=== PATIENT | female | born 1970 | race Caucasian/White ===

== ENCOUNTER 2017-12-19 10:39 | Inpatient (IN) | payer MEDICAID ==
[2017-12-19] MEDS: SOD CHLORIDE 0.9% 1,000 ML IV ×2 (10:00→18:47)
[2017-12-19 12:15] LABS: ADD MAN DIFF? NO
[2017-12-19 12:18] LABS: WHITE BLOOD COUNT 12.2 10^3/ul (4.8-10.8)
[2017-12-19 12:18] LABS: BASOPHILS % 0.3 % (0.0-2.0); HEMATOCRIT 25.9 % (37.0-47.0); HEMOGLOBIN 8.3 g/dl (12.0-16.0); LYMPHOCYTES # 1.7 10^3/ul (0.8-2.9); LYMPHOCYTES % 14.2 % (15.0-51.0); MEAN CORPUSCULAR HEMOGLOBIN 28.6 pg (29.0-33.0); MEAN CORPUSCULAR VOLUME 89.3 fl (82.0-101.0); MEAN PLATELET VOLUME 9.6 fl (7.4-10.4); MONOCYTES % 8.1 % (0.0-11.0); NEUTROPHIL # 9.3 10^3/ul (1.6-7.5); NEUTROPHILS % 76.9 % (39.0-77.0); PLATELET COUNT 458 10^3/UL (140-415); RED CELL DISTRIBUTION WIDTH 15.6 % (11.5-14.5)
[2017-12-19 12:28] LABS: ANION GAP 18 (8-16); CARBON DIOXIDE 25 mmol/L (21-31); CHLORIDE 102 mmol/L (97-110); GLUCOSE 169 mg/dl (70-220)
[2017-12-19 12:33] LABS: CALCIUM 9.3 mg/dl (8.4-10.2); CREATININE 0.52 mg/dl (0.44-1.00); POTASSIUM 3.7 mmol/L (3.5-5.1); SODIUM 141 mmol/L (135-144)
[2017-12-19 12:35] LABS: BLOOD UREA NITROGEN 5 mg/dl (7-20); INR 1.13; PROTIME 14.7 Sec (11.9-14.9); PT RATIO 1.1
[2017-12-19 12:43] LABS: HOLD TRANSMISSIONS 1
[2017-12-19 13:00] LABS: PARTIAL THROMBOPLASTIN TIME 36.6 Sec (25.0-35.0)
[2017-12-19] MEDS ORDERED: FENTAnyl 50 MCG/ML VIAL ×2 (13:23→14:33)
[2017-12-19] MEDS ORDERED: ROCURONIUM 50 MG INJ (13:39)
[2017-12-19] MEDS ORDERED: PROPOFOL 20 ML (13:39)
[2017-12-19] MEDS ORDERED: SUCCINYLCHOLINE CHLORIDE 100 MG/5 ML SYG IV (13:39)
[2017-12-19] MEDS ORDERED: CEFAZOLIN 1 GM INJ (13:39)
[2017-12-19] MEDS ORDERED: LIDOCAINE 100 MG SYRINGE (13:39)
[2017-12-19] MEDS ORDERED: SUGAMMADEX SODIUM 200 MG/2 ML VIAL IV (13:39)
[2017-12-19] MEDS ORDERED: DIPHENHYDRAMINE 50 MG INJ IV (14:00)
[2017-12-19] MEDS ORDERED: HYDROmorphONE (0.2 MG/ML) 10ML SYG IV (14:00)
[2017-12-19] MEDS ORDERED: FENTAnyl 50 MCG/ML VIAL IV ×3 (14:00)
[2017-12-19] MEDS ORDERED: METOCLOPRAMIDE 10 MG INJ IV (14:00)
[2017-12-19] MEDS ORDERED: MEPERIDINE 25 MG INJ IV (14:00)
[2017-12-19] MEDS ORDERED: D5W-0.45 NACL + KCL 20 MEQ 1,000 ML IV (14:59)
[2017-12-19] MEDS ORDERED: morphine 2 MG INJ IV (15:00)
[2017-12-19] MEDS ORDERED: ACETAMINOPHEN 1000MG/100ML IV 100 ML IVPB (15:00)
[2017-12-19] MEDS: ONDANSETRON 4 MG INJ IV ×2 (15:11→18:23)
[2017-12-19] MEDS: HYDROmorphONE (0.2 MG/ML) 10ML SYG IV ×2 (15:12→17:41)
[2017-12-19 16:20] LABS: IMMEDIATE SPIN CROSSMATCH 1 4
[2017-12-19] MEDS: CEFAZOLIN 2 GM/50 ML (PMX) 50 ML IVPB (18:04)
[2017-12-19 18:59] LABS: HEMATOCRIT 29.3 % (37.0-47.0); HEMOGLOBIN 9.5 g/dl (12.0-16.0)
[2017-12-20] MEDS: SOD CHLORIDE 0.9% 1,000 ML IV ×2 (06:12→18:25)
[2017-12-20 06:18] LABS: ADD MAN DIFF? NO
[2017-12-20 06:27] LABS: WHITE BLOOD COUNT 9.8 10^3/ul (4.8-10.8)
[2017-12-20 06:27] LABS: BASOPHILS % 0.3 % (0.0-2.0); HEMATOCRIT 24.4 % (37.0-47.0); HEMOGLOBIN 7.9 g/dl (12.0-16.0); LYMPHOCYTES # 1.5 10^3/ul (0.8-2.9); LYMPHOCYTES % 14.9 % (15.0-51.0); MEAN CORPUSCULAR HEMOGLOBIN 28.8 pg (29.0-33.0); MEAN CORPUSCULAR HGB CONC 32.4 g/dl (32.0-37.0); MEAN CORPUSCULAR VOLUME 89.1 fl (82.0-101.0); MEAN PLATELET VOLUME 9.5 fl (7.4-10.4); MONOCYTE # 1.3 10^3/ul (0.3-0.9); MONOCYTES % 12.9 % (0.0-11.0); NEUTROPHILS % 71.1 % (39.0-77.0); NUCLEATED RED BLOOD CELLS% 0.2 /100WBC (0.0-0.0); PLATELET COUNT 321 10^3/UL (140-415); RED BLOOD COUNT 2.74 10^6/ul (4.20-5.40); RED CELL DISTRIBUTION WIDTH 16.4 % (11.5-14.5)
[2017-12-20 06:51] LABS: ANION GAP 13 (8-16); BLOOD UREA NITROGEN 7 mg/dl (7-20); CALCIUM 8.2 mg/dl (8.4-10.2); CARBON DIOXIDE 26 mmol/L (21-31); CHLORIDE 104 mmol/L (97-110); CREATININE 0.53 mg/dl (0.44-1.00); GLUCOSE 173 mg/dl (70-220); POTASSIUM 3.8 mmol/L (3.5-5.1); SODIUM 139 mmol/L (135-144)
[2017-12-20] MEDS: HYDROCODONE/APAP (5/325) TAB PO (16:10)
[2017-12-20] MEDS: ONDANSETRON 4 MG INJ IV (19:50)
[2017-12-20] MEDS: SOD CHLORIDE 0.9% 250 ML IV* (22:00)
[2017-12-20] MEDS: FERROUS SULFATE (EC) 325 MG TAB PO (22:13)
[2017-12-21 06:08] LABS: ADD MAN DIFF? NO
[2017-12-21 06:26] LABS: BASOPHILS % 0.5 % (0.0-2.0); HEMATOCRIT 26.3 % (37.0-47.0); HEMOGLOBIN 8.6 g/dl (12.0-16.0); LYMPHOCYTES # 1.3 10^3/ul (0.8-2.9); LYMPHOCYTES % 21.1 % (15.0-51.0); MEAN CORPUSCULAR HEMOGLOBIN 29.1 pg (29.0-33.0); MEAN CORPUSCULAR HGB CONC 32.7 g/dl (32.0-37.0); MEAN CORPUSCULAR VOLUME 88.9 fl (82.0-101.0); MEAN PLATELET VOLUME 9.5 fl (7.4-10.4); MONOCYTE # 0.7 10^3/ul (0.3-0.9); MONOCYTES % 10.7 % (0.0-11.0); NEUTROPHIL # 4.1 10^3/ul (1.6-7.5); NEUTROPHILS % 66.7 % (39.0-77.0); NUCLEATED RED BLOOD CELLS% 0.3 /100WBC (0.0-0.0); PLATELET COUNT 305 10^3/UL (140-415); RED BLOOD COUNT 2.96 10^6/ul (4.20-5.40); RED CELL DISTRIBUTION WIDTH 15.4 % (11.5-14.5)
[2017-12-21 06:26] LABS: WHITE BLOOD COUNT 6.1 10^3/ul (4.8-10.8)
[2017-12-21] MEDS: FERROUS SULFATE (EC) 325 MG TAB PO (09:23)
[2017-12-21] MEDS: BISACODYL (EC) 5 MG TAB PO (18:02)
[2017-12-21] MEDS: HYDROCODONE/APAP (5/325) TAB PO (18:04)
== END 2017-12-21 20:05 | disposition home or self-care (01) | DRG 580 ==
LOC: SDS 10:39 → REC 15:48 → MS2 18:18
PROC: 07B50ZX Excision of Right Axillary Lymphatic, Open Approach, Diagnostic (ICD-10-PCS; principal; 2017-12-19 12:00)
PROC: 0HTT0ZZ Resection of Right Breast, Open Approach (ICD-10-PCS; 2017-12-19 12:00)
DX: C50.919 Malignant neoplasm of unspecified site of unspecified female breast (principal); D62 Acute posthemorrhagic anemia
CPT/HCPCS: 36430; 80048; 85014; 85018; 85025; 85610; 85730; 86850; 86900; 86901; 86920; 88307

== ENCOUNTER 2018-02-14 13:08 | Inpatient (IN) | payer MEDICAID ==
[2018-02-14] MEDS: SOD CHLORIDE 0.9% 500 ML IV (14:18)
[2018-02-14 16:01] LABS: ADD MAN DIFF? NO
[2018-02-14 16:02] LABS: BASOPHILS % 0.1 % (0.0-2.0); EOSINOPHILS % 0.2 % (0.0-7.0); HEMATOCRIT 33.4 % (37.0-47.0); HEMOGLOBIN 10.8 g/dl (12.0-16.0); LYMPHOCYTES % 7.4 % (15.0-51.0); MEAN CORPUSCULAR HEMOGLOBIN 27.8 pg (29.0-33.0); MEAN CORPUSCULAR HGB CONC 32.3 g/dl (32.0-37.0); MEAN CORPUSCULAR VOLUME 86.1 fl (82.0-101.0); MONOCYTE # 1.1 10^3/ul (0.3-0.9); MONOCYTES % 8.1 % (0.0-11.0); NEUTROPHIL # 11.7 10^3/ul (1.6-7.5); NEUTROPHILS % 83.3 % (39.0-77.0); PLATELET COUNT 466 10^3/UL (140-415); RED BLOOD COUNT 3.88 10^6/ul (4.20-5.40); RED CELL DISTRIBUTION WIDTH 13.8 % (11.5-14.5)
[2018-02-14 16:20] LABS: ALANINE AMINOTRANSFERASE 20 IU/L (13-69); ALBUMIN 3.5 g/dl (3.3-4.9); ALBUMIN/GLOBULIN RATIO 0.87; ALKALINE PHOSPHATASE 81 IU/L (42-121); ANION GAP 15 (8-16); ASPARTATE AMINO TRANSFERASE 18 IU/L (15-46); BILIRUBIN,INDIRECT 0.3 mg/dl (0-1.1); BILIRUBIN,TOTAL 0.3 mg/dl (0.2-1.3); BLOOD UREA NITROGEN 7 mg/dl (7-20); CALCIUM 8.9 mg/dl (8.4-10.2); CARBON DIOXIDE 30 mmol/L (21-31); CHLORIDE 96 mmol/L (97-110); CREATININE 0.55 mg/dl (0.44-1.00); GLUCOSE 201 mg/dl (70-220); POTASSIUM 4.2 mmol/L (3.5-5.1); SODIUM 137 mmol/L (135-144); TOTAL PROTEIN 7.5 g/dl (6.1-8.1)
[2018-02-14] MEDS: CEFEPIME 1GM/50 ML (PMX) 50 ML IVPB (16:28)
[2018-02-14 16:29] LABS: B-TYPE NATRIURETIC PEPTIDE 173 PG/ML (0-125)
[2018-02-14] MEDS: ONDANSETRON 4 MG INJ IV ×2 (16:31→17:24)
[2018-02-14] MEDS: HYDROmorphONE 0.5 MG/0.5 ML SYG IV ×2 (16:31→17:29)
[2018-02-14] MEDS: VANCOMYCIN 1 GM (PMX) 250 ML IVPB (16:55)
[2018-02-14 17:03] LABS: INR 1.32; PROTIME 16.6 Sec (11.9-14.9); PT RATIO 1.3
[2018-02-14 17:04] LABS: PARTIAL THROMBOPLASTIN TIME 40.9 Sec (25.0-35.0)
[2018-02-14] MEDS ORDERED: ACETAMINOPHEN 325 MG TAB PO (20:00)
[2018-02-14] MEDS: IOHEXOL 100 ML (20:27)
[2018-02-14] MEDS: SOD CHLORIDE 0.9% 100 ML (20:27)
[2018-02-14] MEDS: IOHEXOL 350MG/ML 50 ML BTL (20:28)
[2018-02-14] MEDS: SOD CHLORIDE 0.9% 1,000 ML IV (20:47)
[2018-02-15] MEDS: HYDROmorphONE 0.5 MG/0.5 ML SYG IV (00:29)
[2018-02-15] MEDS: ONDANSETRON 4 MG INJ IV (00:29)
[2018-02-15] MEDS ORDERED: DOCUSATE SODIUM 100 MG CAP PO (13:30)
[2018-02-15] MEDS ORDERED: ONDANSETRON 4 MG INJ IV (13:30)
[2018-02-15] MEDS ORDERED: ACETAMINOPHEN 325 MG TAB PO (13:30)
[2018-02-15] MEDS ORDERED: NACL 0.9% 3 ML SYG IV (13:30)
[2018-02-15] MEDS ORDERED: LEVALBUTEROL (NEB) 0.63 MG/3 ML AMP HHN (14:00)
[2018-02-15] MEDS: HYDROCODONE/APAP (5/325) TAB PO (14:30)
[2018-02-15] MEDS ORDERED: VANCOMYCIN IV PER PHARMACY XX (16:00)
[2018-02-15] MEDS: CEFEPIME 1GM/50 ML (PMX) 50 ML IVPB (16:10)
[2018-02-15] MEDS: VANCOMYCIN 1.75 GM in SOD CHLORIDE 0.9% 500 ML IVPB (17:56)
[2018-02-15] MEDS: morphine 2 MG INJ IV (20:45)
[2018-02-15] MEDS: FAMOTIDINE 20 MG TAB PO (20:45)
[2018-02-16] MEDS: CEFEPIME 1GM/50 ML (PMX) 50 ML IVPB ×3 (01:12→21:09)
[2018-02-16] MEDS: HYDROCODONE/APAP (5/325) TAB PO ×4 (01:26→21:12)
[2018-02-16] MEDS: VANCOMYCIN 1.25 GM in SOD CHLORIDE 0.9% 250 ML IVPB ×2 (05:38→17:00)
[2018-02-16] MEDS ORDERED: VANCOMYCIN 1 GM 250 ML IVPB (08:00)
[2018-02-16 08:03] LABS: ADD MAN DIFF? NO
[2018-02-16 08:07] LABS: WHITE BLOOD COUNT 10.9 10^3/ul (4.8-10.8)
[2018-02-16 08:07] LABS: BASOPHILS % 0.2 % (0.0-2.0); EOSINOPHILS # 0.2 10^3/ul (0.0-0.5); EOSINOPHILS % 1.7 % (0.0-7.0); HEMATOCRIT 29.8 % (37.0-47.0); HEMOGLOBIN 9.5 g/dl (12.0-16.0); LYMPHOCYTES # 0.9 10^3/ul (0.8-2.9); LYMPHOCYTES % 8.2 % (15.0-51.0); MEAN CORPUSCULAR HGB CONC 31.9 g/dl (32.0-37.0); MEAN CORPUSCULAR VOLUME 87.9 fl (82.0-101.0); MEAN PLATELET VOLUME 9.5 fl (7.4-10.4); MONOCYTE # 1.1 10^3/ul (0.3-0.9); NEUTROPHIL # 8.7 10^3/ul (1.6-7.5); NEUTROPHILS % 79.4 % (39.0-77.0); PLATELET COUNT 411 10^3/UL (140-415); RED BLOOD COUNT 3.39 10^6/ul (4.20-5.40); RED CELL DISTRIBUTION WIDTH 13.9 % (11.5-14.5)
[2018-02-16] MEDS: FAMOTIDINE 20 MG TAB PO ×2 (08:18→21:09)
[2018-02-16 08:25] LABS: ANION GAP 13 (8-16); BLOOD UREA NITROGEN 4 mg/dl (7-20); CALCIUM 8.5 mg/dl (8.4-10.2); CARBON DIOXIDE 31 mmol/L (21-31); CHLORIDE 100 mmol/L (97-110); CREATININE 0.48 mg/dl (0.44-1.00); GLUCOSE 186 mg/dl (70-220); POTASSIUM 3.7 mmol/L (3.5-5.1); SODIUM 140 mmol/L (135-144)
[2018-02-16] MEDS: LIDOCAINE 1% (MDV) 10 ML INJ (10:21)
[2018-02-16 13:46] LABS: FLD MN% 43.5 %; FLD PMN% 56.5 %; FLD RBC 2000 /uL; FLD WBC 1091 /cmm
[2018-02-16 14:31] LABS: FLD TYPE THORACENTHESIS
[2018-02-16 14:31] LABS: FLD CLARITY SLIGHTLY HAZY; FLD COLOR YELLOW; PATH REVIEW? YES
[2018-02-16] MEDS ORDERED: ZOLPIDEM 5 MG TAB PO (23:30)
[2018-02-17] MEDS: HYDROCODONE/APAP (5/325) TAB PO ×4 (01:34→20:02)
[2018-02-17 03:57] LABS: ADD MAN DIFF? NO
[2018-02-17 04:18] LABS: BASOPHILS % 0.1 % (0.0-2.0); EOSINOPHILS # 0.4 10^3/ul (0.0-0.5); EOSINOPHILS % 3.2 % (0.0-7.0); HEMATOCRIT 28.9 % (37.0-47.0); HEMOGLOBIN 9.2 g/dl (12.0-16.0); LYMPHOCYTES # 0.9 10^3/ul (0.8-2.9); LYMPHOCYTES % 7.7 % (15.0-51.0); MEAN CORPUSCULAR HGB CONC 31.8 g/dl (32.0-37.0); MEAN CORPUSCULAR VOLUME 87.8 fl (82.0-101.0); MEAN PLATELET VOLUME 9.4 fl (7.4-10.4); NEUTROPHIL # 9.7 10^3/ul (1.6-7.5); NEUTROPHILS % 80.5 % (39.0-77.0); PLATELET COUNT 396 10^3/UL (140-415); RED BLOOD COUNT 3.29 10^6/ul (4.20-5.40)
[2018-02-17 04:23] LABS: ANION GAP 14 (8-16); BLOOD UREA NITROGEN 7 mg/dl (7-20); CALCIUM 8.4 mg/dl (8.4-10.2); CARBON DIOXIDE 30 mmol/L (21-31); CHLORIDE 99 mmol/L (97-110); CREATININE 0.49 mg/dl (0.44-1.00); GLUCOSE 200 mg/dl (70-220); POTASSIUM 3.7 mmol/L (3.5-5.1); SODIUM 139 mmol/L (135-144)
[2018-02-17 04:27] LABS: VANCOMYCIN,TROUGH 8.2 ug/ml (10.0-20.0)
[2018-02-17] MEDS: VANCOMYCIN 1.5 GM in SOD CHLORIDE 0.9% 250 ML IVPB ×2 (06:22→16:04)
[2018-02-17] MEDS: FAMOTIDINE 20 MG TAB PO ×2 (08:34→20:02)
[2018-02-17] MEDS: CEFEPIME 1GM/50 ML (PMX) 50 ML IVPB ×2 (08:34→20:29)
[2018-02-18] MEDS: VANCOMYCIN 1.5 GM in SOD CHLORIDE 0.9% 250 ML IVPB ×2 (05:25→17:07)
[2018-02-18 07:21] LABS: ADD MAN DIFF? NO
[2018-02-18 07:22] LABS: BASOPHILS % 0.1 % (0.0-2.0); EOSINOPHILS # 0.3 10^3/ul (0.0-0.5); EOSINOPHILS % 2.4 % (0.0-7.0); HEMATOCRIT 28.1 % (37.0-47.0); HEMOGLOBIN 8.9 g/dl (12.0-16.0); LYMPHOCYTES # 0.9 10^3/ul (0.8-2.9); LYMPHOCYTES % 7.8 % (15.0-51.0); MEAN CORPUSCULAR HEMOGLOBIN 27.5 pg (29.0-33.0); MEAN CORPUSCULAR HGB CONC 31.7 g/dl (32.0-37.0); MEAN CORPUSCULAR VOLUME 86.7 fl (82.0-101.0); MEAN PLATELET VOLUME 9.1 fl (7.4-10.4); MONOCYTE # 1.2 10^3/ul (0.3-0.9); MONOCYTES % 9.9 % (0.0-11.0); NEUTROPHIL # 9.2 10^3/ul (1.6-7.5); NEUTROPHILS % 79.5 % (39.0-77.0); PLATELET COUNT 376 10^3/UL (140-415); RED BLOOD COUNT 3.24 10^6/ul (4.20-5.40)
[2018-02-18 07:22] LABS: WHITE BLOOD COUNT 11.6 10^3/ul (4.8-10.8)
[2018-02-18] MEDS: HYDROCODONE/APAP (5/325) TAB PO ×3 (07:34→20:20)
[2018-02-18 07:44] LABS: ANION GAP 13 (8-16); BLOOD UREA NITROGEN 4 mg/dl (7-20); CALCIUM 8.4 mg/dl (8.4-10.2); CARBON DIOXIDE 31 mmol/L (21-31); CHLORIDE 96 mmol/L (97-110); CREATININE 0.46 mg/dl (0.44-1.00); GLUCOSE 163 mg/dl (70-220); POTASSIUM 3.6 mmol/L (3.5-5.1); SODIUM 136 mmol/L (135-144)
[2018-02-18] MEDS: CEFEPIME 1GM/50 ML (PMX) 50 ML IVPB ×2 (08:39→21:00)
[2018-02-18] MEDS: FAMOTIDINE 20 MG TAB PO ×2 (08:39→20:20)
[2018-02-19] MEDS: HYDROCODONE/APAP (5/325) TAB PO ×4 (04:25→23:44)
[2018-02-19] MEDS: VANCOMYCIN 1.5 GM in SOD CHLORIDE 0.9% 250 ML IVPB (04:26)
[2018-02-19 05:11] LABS: VANCOMYCIN,TROUGH 9.8 ug/ml (10.0-20.0)
[2018-02-19] MEDS: CEFEPIME 1GM/50 ML (PMX) 50 ML IVPB ×2 (08:22→20:59)
[2018-02-19] MEDS: FAMOTIDINE 20 MG TAB PO ×2 (08:22→20:59)
[2018-02-19] MEDS: VANCOMYCIN 1.25 GM in SOD CHLORIDE 0.9% 250 ML IVPB ×2 (14:15→21:09)
[2018-02-20] MEDS: VANCOMYCIN 1.25 GM in SOD CHLORIDE 0.9% 250 ML IVPB (06:05)
[2018-02-20 06:36] LABS: ADD MAN DIFF? NO
[2018-02-20 06:40] LABS: BASOPHILS % 0.2 % (0.0-2.0); EOSINOPHILS # 0.2 10^3/ul (0.0-0.5); EOSINOPHILS % 2.3 % (0.0-7.0); HEMATOCRIT 28.5 % (37.0-47.0); HEMOGLOBIN 9.2 g/dl (12.0-16.0); LYMPHOCYTES # 0.9 10^3/ul (0.8-2.9); LYMPHOCYTES % 8.7 % (15.0-51.0); MEAN CORPUSCULAR HEMOGLOBIN 28.3 pg (29.0-33.0); MEAN CORPUSCULAR HGB CONC 32.3 g/dl (32.0-37.0); MEAN CORPUSCULAR VOLUME 87.7 fl (82.0-101.0); MEAN PLATELET VOLUME 9.3 fl (7.4-10.4); MONOCYTE # 1.2 10^3/ul (0.3-0.9); MONOCYTES % 12.4 % (0.0-11.0); NEUTROPHIL # 7.5 10^3/ul (1.6-7.5); NEUTROPHILS % 75.9 % (39.0-77.0); PLATELET COUNT 374 10^3/UL (140-415); RED BLOOD COUNT 3.25 10^6/ul (4.20-5.40); RED CELL DISTRIBUTION WIDTH 14.1 % (11.5-14.5)
[2018-02-20 06:40] LABS: WHITE BLOOD COUNT 9.9 10^3/ul (4.8-10.8)
[2018-02-20 07:05] LABS: ANION GAP 12 (8-16); BLOOD UREA NITROGEN 4 mg/dl (7-20); CALCIUM 8.6 mg/dl (8.4-10.2); CARBON DIOXIDE 33 mmol/L (21-31); CHLORIDE 98 mmol/L (97-110); CREATININE 0.52 mg/dl (0.44-1.00); GLUCOSE 152 mg/dl (70-220); POTASSIUM 3.8 mmol/L (3.5-5.1); SODIUM 139 mmol/L (135-144)
[2018-02-20] MEDS: HYDROCODONE/APAP (5/325) TAB PO ×3 (08:03→20:36)
[2018-02-20] MEDS: FAMOTIDINE 20 MG TAB PO ×2 (10:10→20:36)
[2018-02-20] MEDS: CEFEPIME 1GM/50 ML (PMX) 50 ML IVPB (10:11)
[2018-02-21] MEDS: METOPROLOL (XL) 25 MG TAB PO
[2018-02-21] MEDS: HYDROCODONE/APAP (5/325) TAB PO ×3 (03:54→18:44)
[2018-02-21] MEDS: LEVOFLOXACIN 500 MG TAB PO (06:21)
[2018-02-21] MEDS: FAMOTIDINE 20 MG TAB PO ×2 (08:45→20:32)
[2018-02-21] MEDS: METOPROLOL 25 MG TAB PO ×2 (08:45→20:32)
[2018-02-21] MEDS ORDERED: METOPROLOL (XL) 25 MG TAB PO (09:00)
[2018-02-22] MEDS: HYDROCODONE/APAP (5/325) TAB PO ×4 (00:24→19:56)
[2018-02-22] MEDS: LEVOFLOXACIN 500 MG TAB PO (06:42)
[2018-02-22 07:18] LABS: ADD MAN DIFF? NO
[2018-02-22 07:25] LABS: BASOPHILS % 0.1 % (0.0-2.0); EOSINOPHILS # 0.1 10^3/ul (0.0-0.5); EOSINOPHILS % 0.4 % (0.0-7.0); HEMATOCRIT 29.2 % (37.0-47.0); HEMOGLOBIN 9.3 g/dl (12.0-16.0); LYMPHOCYTES # 1.4 10^3/ul (0.8-2.9); LYMPHOCYTES % 12.2 % (15.0-51.0); MEAN CORPUSCULAR HEMOGLOBIN 27.4 pg (29.0-33.0); MEAN CORPUSCULAR HGB CONC 31.8 g/dl (32.0-37.0); MEAN CORPUSCULAR VOLUME 86.1 fl (82.0-101.0); MONOCYTE # 1.3 10^3/ul (0.3-0.9); MONOCYTES % 11.5 % (0.0-11.0); NEUTROPHIL # 8.8 10^3/ul (1.6-7.5); NEUTROPHILS % 75.3 % (39.0-77.0); PLATELET COUNT 372 10^3/UL (140-415); RED BLOOD COUNT 3.39 10^6/ul (4.20-5.40); RED CELL DISTRIBUTION WIDTH 14.4 % (11.5-14.5)
[2018-02-22 07:25] LABS: WHITE BLOOD COUNT 11.7 10^3/ul (4.8-10.8)
[2018-02-22 07:53] LABS: ANION GAP 13 (8-16); BLOOD UREA NITROGEN 6 mg/dl (7-20); CALCIUM 8.6 mg/dl (8.4-10.2); CARBON DIOXIDE 33 mmol/L (21-31); CHLORIDE 97 mmol/L (97-110); CREATININE 0.55 mg/dl (0.44-1.00); GLUCOSE 156 mg/dl (70-220); MAGNESIUM 1.7 mg/dl (1.7-2.5); PHOSPHORUS 3.2 mg/dl (2.5-4.9); POTASSIUM 4.4 mmol/L (3.5-5.1); SODIUM 139 mmol/L (135-144)
[2018-02-22] MEDS: METOPROLOL 25 MG TAB PO ×2 (08:04→19:56)
[2018-02-22] MEDS: FAMOTIDINE 20 MG TAB PO ×2 (08:04→19:56)
[2018-02-23] MEDS: HYDROCODONE/APAP (5/325) TAB PO ×4 (02:32→19:42)
[2018-02-23 07:21] LABS: ADD MAN DIFF? NO
[2018-02-23 07:27] LABS: BASOPHILS % 0.2 % (0.0-2.0); EOSINOPHILS % 0.2 % (0.0-7.0); HEMATOCRIT 29.4 % (37.0-47.0); HEMOGLOBIN 9.4 g/dl (12.0-16.0); LYMPHOCYTES # 1.3 10^3/ul (0.8-2.9); LYMPHOCYTES % 10.1 % (15.0-51.0); MEAN CORPUSCULAR HEMOGLOBIN 27.4 pg (29.0-33.0); MEAN CORPUSCULAR VOLUME 85.7 fl (82.0-101.0); MEAN PLATELET VOLUME 9.3 fl (7.4-10.4); MONOCYTE # 1.4 10^3/ul (0.3-0.9); NEUTROPHIL # 10.2 10^3/ul (1.6-7.5); PLATELET COUNT 351 10^3/UL (140-415); RED BLOOD COUNT 3.43 10^6/ul (4.20-5.40); RED CELL DISTRIBUTION WIDTH 14.5 % (11.5-14.5)
[2018-02-23 07:27] LABS: WHITE BLOOD COUNT 13.1 10^3/ul (4.8-10.8)
[2018-02-23 07:47] LABS: ANION GAP 15 (8-16); BLOOD UREA NITROGEN 6 mg/dl (7-20); CALCIUM 8.9 mg/dl (8.4-10.2); CARBON DIOXIDE 30 mmol/L (21-31); CHLORIDE 98 mmol/L (97-110); CREATININE 0.48 mg/dl (0.44-1.00); GLUCOSE 180 mg/dl (70-220); POTASSIUM 4.3 mmol/L (3.5-5.1); SODIUM 139 mmol/L (135-144)
[2018-02-23] MEDS: METOPROLOL 25 MG TAB PO ×2 (08:28→19:42)
[2018-02-23] MEDS: FAMOTIDINE 20 MG TAB PO ×2 (08:28→19:42)
[2018-02-23] MEDS: LIDOCAINE 1% (MDV) 10 ML INJ (11:00)
[2018-02-23] MEDS: GUAIFENESIN/DM 5ML CUP PO (17:23)
[2018-02-23] MEDS ORDERED: CEPASTAT LOZENGE MT (17:30)
[2018-02-24] MEDS: HYDROCODONE/APAP (5/325) TAB PO ×3 (03:59→15:07)
[2018-02-24 05:54] LABS: ADD MAN DIFF? NO
[2018-02-24 05:59] LABS: BASOPHILS % 0.1 % (0.0-2.0); EOSINOPHILS % 0.1 % (0.0-7.0); HEMOGLOBIN 9.6 g/dl (12.0-16.0); LYMPHOCYTES # 1.1 10^3/ul (0.8-2.9); LYMPHOCYTES % 7.4 % (15.0-51.0); MEAN CORPUSCULAR HEMOGLOBIN 27.5 pg (29.0-33.0); MEAN PLATELET VOLUME 9.3 fl (7.4-10.4); MONOCYTE # 1.4 10^3/ul (0.3-0.9); MONOCYTES % 9.3 % (0.0-11.0); NEUTROPHIL # 12.4 10^3/ul (1.6-7.5); NEUTROPHILS % 82.6 % (39.0-77.0); PLATELET COUNT 349 10^3/UL (140-415); RED BLOOD COUNT 3.49 10^6/ul (4.20-5.40); RED CELL DISTRIBUTION WIDTH 14.5 % (11.5-14.5)
[2018-02-24 06:22] LABS: ANION GAP 14 (8-16); BLOOD UREA NITROGEN 8 mg/dl (7-20); CALCIUM 8.9 mg/dl (8.4-10.2); CARBON DIOXIDE 31 mmol/L (21-31); CHLORIDE 95 mmol/L (97-110); CREATININE 0.67 mg/dl (0.44-1.00); GLUCOSE 186 mg/dl (70-220); POTASSIUM 4.2 mmol/L (3.5-5.1); SODIUM 136 mmol/L (135-144)
[2018-02-24] MEDS: FAMOTIDINE 20 MG TAB PO (09:08)
[2018-02-24] MEDS: METOPROLOL 25 MG TAB PO (09:08)
== END 2018-02-24 16:56 | disposition home or self-care (01) | DRG 193 ==
LOC: TEL 19:49 → E/R 13:08 → TEL 02-15 10:23
PROC: 0W993ZX Drainage of Right Pleural Cavity, Percutaneous Approach, Diagnostic (ICD-10-PCS; principal; 2018-02-16)
PROC: 0W993ZX Drainage of Right Pleural Cavity, Percutaneous Approach, Diagnostic (ICD-10-PCS; 2018-02-23)
DX: J18.9 Pneumonia, unspecified organism (principal); J96.01 Acute respiratory failure with hypoxia; C78.00 Secondary malignant neoplasm of unspecified lung; C79.00 Secondary malignant neoplasm of unspecified kidney and renal pelvis; J91.0 Malignant pleural effusion; R65.10 Systemic inflammatory response syndrome (SIRS) of non-infectious origin without acute organ dysfunction; C79.51 Secondary malignant neoplasm of bone; C50.911 Malignant neoplasm of unspecified site of right female breast; R06.03 Acute respiratory distress; E66.9 Obesity, unspecified; Z92.21 Personal history of antineoplastic chemotherapy; Z90.11 Acquired absence of right breast and nipple; Z68.36 Body mass index [BMI] 36.0-36.9, adult; Z45.2 Encounter for adjustment and management of vascular access device
CPT/HCPCS: 36415; 71045; 71275; 76942; 80048; 80053; 80202; 83735; 83880; 84100; 85025; 85610; 85730; 87040; 87070; 87102; 87116; 89051; 96374; 96375; 96376; 99285-25